=== PATIENT | male | born 1940 | race Asian ===

== ENCOUNTER 2018-12-07 23:14 | Inpatient (IN) | payer MEDICAID ==
[~2018-12-07] VITALS: Ht 162.6 cm; Wt 83.8 kg
[2018-12-08] MEDS ORDERED: ATOR20TA37 PO (00:07)
[2018-12-08] MEDS ORDERED: ASPI-496 PO (00:07)
[2018-12-08] MEDS ORDERED: ESOM20CA PO (00:07)
[2018-12-08] MEDS ORDERED: METO25TA91 PO (00:07)
[2018-12-08 00:47] LABS: TROPONIN I 0.587 ng/mL (0.000-0.045)
[2018-12-08] MEDS ORDERED: morphine SULFATE 10 MG/ML, 1ML IVPush PRN ×2 (01:30→10:30)
[2018-12-08] MEDS ORDERED: OXYcodone/APAP 5/325MG TABLET PO PRN (01:30)
[2018-12-08] MEDS ORDERED: SIMVASTATIN 20 MG TABLET PO ONE (02:00)
[2018-12-08] MEDS ORDERED: NITROGLYCERIN OINT 2%, 1GM TP ONE (02:00)
[2018-12-08 02:27] VITALS: BP 147/79
[2018-12-08 07:17] VITALS: BP 130/76
[2018-12-08] MEDS ORDERED: ENOXAPARIN 40 MG/0.4 ML SQ SCH (08:00)
[2018-12-08] MEDS ORDERED: REGADENOSON 0.4 MG/5 ML SYRINGE ONE (08:13)
[2018-12-08] MEDS ORDERED: METOPROLOL SUCCINATE 25 MG TAB.ER.24H PO SCH (09:00)
[2018-12-08] MEDS ORDERED: ASPIRIN 81 MG TABLET EC PO SCH (09:00)
[2018-12-08 12:15] VITALS: BP 123/71
[2018-12-08 13:01] LABS: TROPONIN I 0.476 ng/mL (0.000-0.045)
[2018-12-08] MEDS ORDERED: SIMVASTATIN 20 MG TABLET PO SCH (21:00)
[2018-12-08] MEDS ORDERED: ATORVASTATIN 20 MG TABLET PO SCH (21:00)
[2018-12-09] MEDS ORDERED: ISOSORBIDE MONONITRATE ER 30 MG TABLET PO SCH (09:00)
== END 2018-12-08 15:05 | disposition expired | DRG 189 ==
LOC: ED 23:52 → EDIP 12-08 01:14 → 5SO 12-08 02:09 → DCLOUNGE 12-08 14:50
PROVIDERS: ADMIT Internal Medicine; ATTEND Internal Medicine
DX: J96.01 Acute respiratory failure with hypoxia (principal); I21.4 Non-ST elevation (NSTEMI) myocardial infarction; E66.9 Obesity, unspecified; Z68.31 Body mass index [BMI] 31.0-31.9, adult; E78.5 Hyperlipidemia, unspecified; G47.00 Insomnia, unspecified; I10 Essential (primary) hypertension; I25.10 Atherosclerotic heart disease of native coronary artery without angina pectoris; I25.2 Old myocardial infarction; K21.9 Gastro-esophageal reflux disease without esophagitis; Z79.82 Long term (current) use of aspirin; Z95.5 Presence of coronary angioplasty implant and graft; Z99.81 Dependence on supplemental oxygen; R07.89 Other chest pain
CPT/HCPCS: 36415; 71045; 78452; 83880; 84484; 85379; 93005; 93017; J1650; J2785; A9502; C9898